=== PATIENT | female | born 1990 | race Caucasian/White ===

== ENCOUNTER 2024-08-08 13:08 | Emergency (ER) | payer OTHER, BC ==
[~2024-08-08] VITALS: Ht 170.2 cm; Wt 80.9 kg
[2024-08-08] MEDS ORDERED: LEVOTHYROXINE100 MC2 PO (13:34)
[2024-08-08] MEDS ORDERED: PRENATAL + DHA1 EAC1 PO (13:35)
[2024-08-08] MEDS ORDERED: BARIATRIC MV-I1 EACH PO (13:35)
[2024-08-08] MEDS ORDERED: PROTONIX40 MG PO (13:35)
[2024-08-08] MEDS ORDERED: CIPROFLOX-DEXA7.5 ML (13:38)
[2024-08-08] MEDS ORDERED: CEPHALEXIN MONOHYDRATE 500 MG CAP PO ONE (14:00)
[2024-08-08] MEDS ORDERED: clindamycin HCL 300 MG CAP PO ONE (14:00)
[2024-08-08] MEDS ORDERED: CEPHALEXIN500 MG PO (14:27)
[2024-08-08] MEDS ORDERED: CLEOCIN HCL300 MG PO (14:27)
[2024-08-08 14:30] VITALS: BP 107/71
== END 2024-08-08 14:30 | disposition home or self-care (01) ==
LOC: ED 13:08 → EDBD 13:10 → ED 13:10
DX: O23.592 Infection of other part of genital tract in pregnancy, second trimester (principal); Z3A.26 26 weeks gestation of pregnancy; Z88.6 Allergy status to analgesic agent; Z91.048 Other nonmedicinal substance allergy status; Z88.5 Allergy status to narcotic agent; Z79.890 Hormone replacement therapy; Z79.899 Other long term (current) drug therapy
CPT/HCPCS: 99283; A9270